=== PATIENT | male | born 1945 | race Caucasian/White ===

== ENCOUNTER 2016-09-21 07:09 | Day surgery (SDC) | payer MEDICARE, OTHER ==
[~2016-09-21 07:09] MED LIST: RINGERS SOLUTION,LACTATED 1,000 ML IV PRN; ceFAZolin SODIUM 1 GM VIAL IV PRN
--- OUTSIDE RECORDS SUMMARY | 2016-09-21 07:13 | XMS REPORT | Continuity of Care Document ---
:1945 Author Organization [facility] ([facility]) Address [address] [place] [address] Phone [phone] Care Team Providers Name Role Phone Mehdi Collins Primary Care Provider [phone] Source Comments This disclosure is being made pursuant to the Care Everywhere program, applicable federal and state laws, and may not contain all informaitonavailable regarding this patient.[facility] ([facility]) Active Allergies and Adverse Reactions No Known Allergies Current Medications Prescription Sig. Disp. Refills Start Date End Date Status lisinopril 40 mg Take 40 mg by mouth Active tablet daily. Indications: HYPERTENSION clonazePAM 1 mg tablet Take 1 mg by mouth 2 01/01/2014 Active times daily as needed. Indications: Anxiety Active Problems Problem Noted Date Bipolar disorder, unspecified 01/01/2014 Overview: Reported by previous [facility] psychiatrist Social History Tobacco Use Types Packs/Day Years Used Date Current Every Day Smoker 2 49 Tobacco Cessation:Ready to Quit: No; Counseling Given: No Comments: Last Filed Vital Signs Vital Sign Reading Time Taken Blood Pressure 128/78 04/22/2014 2:12 PM DIRECTOR SOFTWARE Pulse 75 04/22/2014 2:12 PM DIRECTOR SOFTWARE Temperature - - Respiratory Rate 16 04/22/2014 2:12 PM DIRECTOR SOFTWARE Height 1.755 m (5' 9.09") 02/19/2014 1:42 PM CDT Weight 77.111 kg (170 lb) 04/22/2014 2:12 PM DIRECTOR SOFTWARE Body Mass Index 25.04 04/22/2014 2:12 PM DIRECTOR SOFTWARE Oxygen Saturation 100% 03/03/2014 10:50 AM CDT Plan of Care Health Maintenance Due Date Last Done Comments HCV Screening 1945 Hepatitis B Vaccine (1 of 3 - Primary Series) 1945 Tdap Vaccine 01/09/1956 Lipid Disorder Screening 1963 Td Vaccine 1963 Colonoscopy 1995 Prostate Cancer Screening 1995 Zoster Vaccine 2005 Pneumococcal Vaccine (1 of 2 - PCV13) 2010 Influenza Vaccine: Seasonal (#1) 12/21/2015 Results from Last 3 Months Not on file
[2016-09-21] MEDS ORDERED: BUPIVACAINE HCL 50 ML VIAL IJ ONE ×2 (08:00)
[2016-09-21 10:08] VITALS: BP 142/76
== END 2016-09-21 07:10 | disposition home or self-care (01) ==
LOC: AMB 07:09
PROVIDERS: ATTEND Orthopaedic Surgery
PROC: 0XB Anatomical Regions, Upper Extremities, Excision (ICD-10-PCS; principal; 2016-09-21 08:00)
DX: M67.431 Ganglion, right wrist (principal); I10 Essential (primary) hypertension; K21.9 Gastro-esophageal reflux disease without esophagitis; F41.9 Anxiety disorder, unspecified; F33.9 Major depressive disorder, recurrent, unspecified; F17.200 Nicotine dependence, unspecified, uncomplicated; Z68.22 Body mass index [BMI] 22.0-22.9, adult

== ENCOUNTER 2020-06-21 11:00 | Inpatient (IN) ==
--- NOTE | 2020-06-21 11:46 | ERNOTE ---
Abdominal HPI - Narrative Date of Service: 06/21/20 - General Chief Complaint: Abdominal Pain Time Seen by Provider: 06/21/20 11:33 Source: patient, family Exam Limitations: no limitations - Immun/Allergies/Home Medications Immunizatons: IMMUNIZATION HX Immunizations Up to Date Yes History of Influenza Vaccine More Information Required Hx Pneumococcal Vaccination Yes Allergies/Adverse Reactions: Allergies irbesartan [From Avapro] Allergy (Severe, Verified 06/21/20 11:21) Anaphylaxis valsartan [From Diovan] Allergy (Severe, Verified 06/21/20 11:21) Anaphylaxis aripiprazole [From Abilify] Adverse Reaction (Mild, Verified 06/21/20 11:21) Headache eszopiclone [From Lunesta] Adverse Reaction (Mild, Verified 06/21/20 11:21) HEADACHES lithium Adverse Reaction (Mild, Verified 06/21/20 11:21) INTERACTION WITH LISINOPRIL, DEPRESSES HIM phenelzine sulfate [From Nardil] Adverse Reaction (Mild, Verified 06/21/20 11:21) BRAIN PRESSURE, HEADACHES Home Medications: HOME MEDICATIONS fluticasone propionate 50 mcg/actuation nasal spray,suspension 1 spray SELIN BID #9.9 g 07/12/18 [Last Taken 07/17/18] cholecalciferol (vitamin D3) 50 mcg (2,000 unit) capsule 2,000 unit PO DAILY [Last Taken Unknown] ferrous sulfate 325 mg (65 mg iron) tablet 325 mg PO Q3D tab 06/28/19 [Last Taken Unknown] metoprolol tartrate 50 mg tablet 50 mg PO BID #60 tab 12/17/19 [Last Taken Unkno wn] aspirin 81 mg tablet,delayed release 81 mg PO DAILY 01/08/20 [Last Taken Unknown] Spiro Oil/[place]-3 Fatty Acids [Fish Oil] 1,200 mg PO DAILY 01/10/20 [Last Taken Unknown] lamotrigine 200 mg tablet 200 mg PO DAILY #30 tab 04/02/20 [Last Taken Unknown] lisinopril 20 mg tablet 20 mg PO DAILY #90 tab 04/20/20 [Last Taken Unknown] dextroamphetamine-amphetamine 20 mg tablet 40 mg PO BID #120 tab 04/23/20 [Last Taken Unknown] - History of Present Illness Narrative: Patient comes in for periumbilical abdominal pain that started last night. He states it severe, constant, not changing although he thinks it might of gotten worse since it started last night. He has not taken anything at home for the pain. It does not radiate. He had a bowel movement yesterday, this was normal. He feels slightly nauseated, has not vomited. No change in urine. He does not feel ill otherwise, no fever, no cough. He reports no chest pain and does not feel that the pain is any worse with deep breathing, movement etc. Pain is rated at an 8 out of 10 in severity. Timing: constant Review of Systems - Review of Systems Constitutional: Present: no symptoms reported. Absent: recent illness EYE: Present: no symptoms reported ENT: Present: no symptoms reported Respiratory: Present: no symptoms reported Cardiology: Present: no symptoms reported Gastrointestinal/Abdominal: Present: See HPI Skin: Present: no symptoms reported Medical History (Last Reviewed 06/21/20 @ 12:29 by Sherie Augustine MD) Refused pneumococcal vaccination (Acute) Onset Date: ~05/2018 Refused influenza vaccine (Acute) Onset Date: ~05/2018 Tobacco abuse (Chronic) Anemia (Chronic) CHF (congestive heart failure) (Chronic) Onset Date: ~09/22/17 PVD (peripheral vascular disease) (Chronic) Onset Date: ~09/22/17 Paresthesias (Chronic) Onset Date: ~02/21/13 Major depression (Chronic) Onset Date: Unknown Insomnia (Chronic) Onset Date: ~02/21/13 Hypotestosteronemia (Chronic) Onset Date: ~01/18/15 Hypertension (Chronic) Onset Date: ~04/05/13 GERD (gastroesophageal reflux disease) (Chronic) Onset Date: ~05/29/14 Elevated blood pressure reading (Chronic) Onset Date: Unknown Chronic major depressive disorder, recurrent episode (Chronic) Onset Date: ~04/30/16 CAD (coronary artery disease) (Chronic) Onset Date: ~09/22/17 Bipolar disorder (Chronic) Onset Date: ~09/29/13 Anxiety disorder (Chronic) Onset Date: ~04/05/13 Acute myocardial infarction (Chronic) Onset Date: ~09/22/17 ACS (acute coronary syndrome) (Acute) History of blood transfusion Onset Date: ~07/05/18 Myopia Onset Date: Unknown Renal failure Onset Date: Unknown Bronchitis Onset Date: Unknown Chickenpox Onset Date: Unknown Colon neoplasm Onset Date: ~01/16/07 Eczema Onset Date: Unknown Kidney stone Onset Date: Unknown Measles Onset Date: Unknown Mumps Onset Date: Unknown NSTEMI (non-ST elevated myocardial infarction) Onset Date: Unknown Surgical History: Surgical History (Last Reviewed 06/21/20 @ 12:29 by Sherie Augustine MD) H/O colonoscopy Onset Date: 09/11/17 Krzysztof 01/15/07-tubulovillous adenoma, 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 04/05/07-tubular adenoma x3, hyperplasia polyp. 09/13/07-tubular adenoma x3. 01/09/09-normal. 10/12/15-normal. Repeat 5 yrs. Paula Ryder-09/11/17-negative. H/O heart artery stent Onset Date: 09/12/17 Britni H/O inguinal hernia repair Onset Date: 01/09/09 Cristyan-right w/mesh plug and patch H/O shoulder surgery Onset Date: 04/28/08 [facility] left shoulder History of angiography Onset Date: 10/18/17 Paula Ryder-abd aortogram w/left lower extremity runoff angiography, right angiography w/stents History of colon resection Onset Date: 01/18/07 Krzysztof-sigmoid colon resection for adenocarcinoma w/negative nodes. (left colon resection, small bowel resection) History of esophagogastroduodenoscopy (EGD) Onset Date: 09/11/17 Krzysztof 10/12/15-H pylor negative, chronic irritation gastritis. Paula Ryder-09/11/17-negative. S/P wrist surgery Onset Date: 09/21/16 Lawson-excision right volar radial wrist mass. history of heart catherization Onset Date: 09/08/17 Paula Ryder-100% stenosis LAD, 95% stenosis LCA, 85-90% stenosis RCA. Family History: Family History (Last Reviewed 06/21/20 @ 12:29 by Sherie Augustine MD) Brother Alive and well 1 brother Heart disease 1 brother Father , age 64-heart disease CHF (congestive heart failure) CAD (coronary artery disease) Cancer lung Heart disease Mother Alcoholic Lymphoma Cancer larynx Uncle Cancer lung Sister Alive and well Social History: (Last Reviewed 06/21/20 @ 12:29 by Sherie Augustine MD) Social History: adopted: No mcfp: No Marital status: household members: spouse number of children: 3 caregiver/support person: Yes current occupational status: retired Highest level of school completed/degree received: Master's degree Service: No Tobacco: Smoking Status: Current every day smoker tobacco type: cigarettes Smoking packs per day: 1.5 Alcohol: alcohol intake: current Alcohol type: wine alcohol intake frequency: a few times a week Substance Use: substance use type: does not use Dietary Habits: caffeine: Yes Personal Safety: victim of physical abuse: No victim of emotional abuse: No Physical Exam - Physical Exam General Appearance: Present: wd/wn, alert, no apparent distress Head Exam: Present: normal inspection, no evidence of injury Eye Exam: Normal inspection: bilateral, PERRL: bilateral Neck: Present: normal inspection, nontender, supple Respiratory: Present: no respiratory distress, lungs clear Cardiovascular/Chest: Present: regular rate, rhythm Gastrointestinal/Abdominal: Present: normal bowel sounds, soft, other - Pain is located in the center of the abdomen, just above the umbilicus. There is a well-healed surgical scar from partial colectomy, diverticulitis. There is no specific pain with palpation, no rebound guarding or signs of peritonitis. No HSM. Back Exam: Present: normal inspection, no CVA tenderness Extremity Exam: Present: no edema Skin Exam: Present: normal color, warm/dry Progress - Results and Orders Patient's Lab Results:: I have reviewed the patient's lab results. Results and Orders: Laboratory Tests 06/21/20 06/21/20 06/21/20 12:10 12:10 12:10 WBC 21.4 H Hgb 14.6 Hct 44.2 Plt Count 301 Plasma Sodium 138 Potassium 4.2 Chloride 95 L Carbon Dioxide 30.6 Anion Gap 14.6 H BUN 40 H D Creatinine 2.05 H D Random Glucose 232 H Lactic Acid, Venous 3.9 H* Calcium 10.0 Total Bilirubin 0.5 AST 19 ALT 33 Alkaline Phosphatase 82 Troponin I Less than 0.017 Albumin 4.6 Amylase 47 Lipase 146 Laboratory Tests 06/21/20 14:44 Lactic Acid, Venous 2.9 H* Laboratory Tests 06/21/20 14:30 SARS-CoV-2 (PCR) Not detected - Vital Signs Patient's Vital Signs:: I have reviewed the patient's vital signs. Vital Signs: Vital Signs 06/21/20 11:15 Temperature 36.9 C Pulse Rate 108 H Respiratory Rate 18 Blood Pressure 156/85 H O2 Sat by Pulse Oximetry 97 - EKG EKG #1 EKG: NSR EKG read: Interp. by me EKG Comments: EKG shows normal sinus rhythm, ventricular rate of 98, there is occasional PVCs. There is an incomplete right bundle branch block which is new from previous EKG. There is an old septal TN present. The previous EKG from December 2019 shows that septal TN in occurrence. - CT/Ultrasound CT/Ultrasound Narrative: IMPRESSION: 1. COMPLETE HIGH-GRADE SMALL BOWEL OBSTRUCTION WITH A TRANSITION POINT SEEN IN THE LEFT LOWER QUADRANT. 2. CHOLELITHIASIS WITHOUT EVIDENCE FOR CHOLECYSTITIS. 3. ADDITIONAL CHRONIC FINDINGS AND DETAILS ABOVE. - Progress/Reassessment Chief Complaint: Abdominal Pain Progress:: Unchanged Progress Note-Subjective: 06/21/20 14:08 Patient's pain was eventually controlled using morphine and then Dilaudid, he also received Zofran. He is receiving IV fluids on bolus. I did discuss results with patient and his family including elevated white blood cell count, elevated lactic acid and the abnormal CT scan indicating a high-grade SBO. I have already spoken with Krzysztof Thompson who is general surgery organic preparation analyst. He is looking over the patient's CT scan and additional information. He plans to come and evaluate the patient to determine whether or not he is a candidate for admission here versus transfer. Patient is resting comfortably, he is fatigued from his medication. He has not vomited. Holding off on NG placement due to patient's level of fatigue, and the fact that he has not yet vomited. 06/21/20 15:15 Dr. Blankenship at bedside and evaluating pt. He agrees with diagnosis and NG tube placement. He places with nurse himself. Reviews the CT scan, labs etc. Is planning to admit pt here, monitor, NPO and continue to treat for SBO. 06/21/20 15:55 Large amount out NG. 1600 and then 1350cc out. Pts blood pressure decreased to 117/64. He still reports he is comfortable. Covid returns negative. Case discussed with Dr. Cardona. He accepts pt for admission, pt is stable. He is transferred to floor in stable condition. Second L of ivf is set at 125cc/hr. Departure Clinical Impression: SBO (small bowel obstruction) - Departure Disposition: Still a patient Condition: Good Referrals: Bijal Otero DO [Primary Care Provider] -
[2020-06-21] MEDS ORDERED: ONDANSETRON HCL/PF 2 MG/ML VIAL IV ONE (11:55)
[2020-06-21] MEDS ORDERED: MORPHINE SULFATE 4 MG/ML SYRG IV ONE (11:58)
[2020-06-21 12:16] LABS: Hematocrit 44.2 % (42.0-52.0); Hemoglobin 14.6 gm/dL (13.5-18.0); Mean Cell Volume 91.1 fl (78-100); Mean Corpuscular Hemoglobin 30.1 pg (27-31); Mean Platelet Volume 8.9 fl (8-11.3); Platelet Count 301 K/mm3 (150-450); Red Blood Count 4.85 M/mm3 (4.7-6.0); Red Cell Distribution Width 12.5 % (11.5-14.0); White Blood Count 21.4 K/mm3 (4.0-10.5)
[2020-06-21 12:23] LABS: Total Cells Counted 100
[2020-06-21 12:37] LABS: ALT 33 U/L (19-67); AST 19 U/L (0-48); Albumin * 4.6 gm/dl (3.4-5.0); Alkaline Phosphatase * 82 U/L (50-170); Amylase * 47 U/L (25-115); Anion Gap 14.6 mmol/L (6.8-13.8); BUN/Creatinine Ratio 19.5 (9.0-21.6); Band 2 % (0-2.0); Bilirubin, Total 0.5 mg/dL (0.0-1.1); Blood Urea Nitrogen 40 mg/dL (6-23); Ca. Corrected For Albumin 9.2 mg/dL (8.4-10.2); Carbon Dioxide 30.6 mmol/L (24-32.6); Chloride 95 mmol/L (97-106); Glucose * 232 mg/dL (70-110); Lipase 146 U/L (73-393); Lymphocyte 8 % (20-51); Monocyte 4 % (0-9); Neutrophil 86 % (42-75); Neutrophil # 18.4 K/mm3 (1.3-6.0); Platelet Estimate Normal (NORMAL); Potassium 4.2 mmol/L (3.4-4.6); RBC Morphology Normal (NORMAL); Sodium 136 mmol/L (132-142); Total Protein 8.2 gm/dL (6.2-8.2); Troponin I Less than 0.017 ng/mL (0.00-0.10)
[2020-06-21] MEDS ORDERED: HYDROmorphone HCL 1 MG/ML DISP.SYRIN IV ONE (12:48)
[2020-06-21] MEDS ORDERED: NORMAL SALINE 1,000 ML IV ONE ×2 (12:49→16:04)
[2020-06-21] MEDS: NORMAL SALINE 1,000 ML IV PRN (16:01)
--- NOTE | 2020-06-21 16:07 | CONS ---
[facility] - General Date of Service: 06/21/20 Source: patient, family, RN/MD, RN notes reviewed, old records Exam Limitations: no limitations - History of Present Illness Timing/Duration: other - He started having abdominal pain last night Modifying Factors - (Worsens): Reports: movement Modifying Factors - (Improves): Reports: immobilization Associated Symptoms: other - He has not vomited. He had a bowel movement yesterday Allergies/Adverse Reactions: Allergies irbesartan [From Avapro] Allergy (Severe, Verified 06/21/20 11:21) Anaphylaxis valsartan [From Diovan] Allergy (Severe, Verified 06/21/20 11:21) Anaphylaxis aripiprazole [From Abilify] Adverse Reaction (Mild, Verified 06/21/20 11:21) Headache eszopiclone [From Lunesta] Adverse Reaction (Mild, Verified 06/21/20 11:21) HEADACHES lithium Adverse Reaction (Mild, Verified 06/21/20 11:21) INTERACTION WITH LISINOPRIL, DEPRESSES HIM phenelzine sulfate [From Nardil] Adverse Reaction (Mild, Verified 06/21/20 11:21) BRAIN PRESSURE, HEADACHES Home Medications: Home Medications Medication Instructions Recorded Last Taken fluticasone propionate 50 1 spray SELIN BID #9.9 g 07/12/18 07/17/18 mcg/actuation nasal spray,suspension cholecalciferol (vitamin D3) 50 2,000 unit PO DAILY 01/25/19 Unknown mcg (2,000 unit) capsule ferrous sulfate 325 mg (65 mg 325 mg PO Q3D tab 06/28/19 Unknown iron) tablet metoprolol tartrate 50 mg tablet 50 mg PO BID #60 tab 12/17/19 Unknown aspirin 81 mg tablet,delayed 81 mg PO DAILY 01/08/20 Unknown release [place] Oil/[place]-3 Fatty Acids 1,200 mg PO DAILY 01/10/20 Unknown [Fish Oil] lamotrigine 200 mg tablet 200 mg PO DAILY #30 tab 04/02/20 Unknown lisinopril 20 mg tablet 20 mg PO DAILY #90 tab 04/20/20 Unknown dextroamphetamine-amphetamine 20 40 mg PO BID #120 tab 04/23/20 Unknown mg tablet Procedures Administration of diphtheria toxoid (08/05/10) Administration of tetanus toxoid (08/05/10) BONE GRAFT TO HUMERUS (04/28/08) Closure of skin and subcutaneous tissue of other sites (09/22/06) Colonoscopy (01/09/09) EXCISE HUMERUS FOR GRAFT (04/28/08) Endoscopic polypectomy of large intestine (09/13/07) Excision of Right Lower Arm, Open Approach (09/21/16) Excision of Stomach, Via Natural or Artificial Opening Endoscopic, Diagnostic (10/12/15) Flexible sigmoidoscopy (01/18/07) Inspection of Lower Intestinal Tract, Via Natural or Artificial Opening Endoscopic (10/12/15) Left hemicolectomy (01/18/07) Lysis of intraluminal adhesions with incision into bladder (01/18/07) OPEN RED-INT FIX HUMERUS (04/28/08) Other and open repair of indirect inguinal hernia with graft or prosthesis (01/09/09) Other partial resection of small intestine (01/18/07) Repair of recurrent dislocation of shoulder (04/28/08) [Endoscopic] polypectomy of rectum (09/13/07) Review of Systems - Review of Systems Generalized/Overall Review: Present: Weakness. Absent: Chills, Fever EENTM: Present: No Symptoms Reported Respiratory: Absent: Cough, Shortness of Breath Cardiac: Absent: Chest Pain, Palpitations Abdominal: Present: Other - Abdominal pain and distention Genitourinary: Present: No Symptoms Reported Musculoskeletal: Present: No Symptoms Reported Neurological: Present: Other - He has not found a medication that works well for his bipolar disorder. Currently using amphetamine salts. His states he may need something for anxiety while here Skin: Present: No Symptoms Reported Physical Examination - Exam Vital Signs: Vital Signs - Last Taken Temp 36.9 C 06/21/20 11:15 Pulse 93 06/21/20 15:15 Resp 15 06/21/20 15:30 BP 148/70 06/21/20 15:30 Pulse Ox 97 06/21/20 15:30 O2 Oxygen Delivery Method Room Air Constitutional: Present: Oriented x3, Cooperative, Well developed, Well nourished, Mild distress, Somnolent ENT Exam: Present: normal ENT inspection Eye Exam: bilateral eye: normal inspection Neck: Present: full range of motion, normal inspection Breasts: Present: Exam deferred Respiratory: Present: lungs clear, no respiratory distress Cardiovascular/Chest: Present: other - Heart sounds are very distant but the rhythm is regular Abdomen: Present: other - Distended and tympanic. Hypoactive bowel sounds. No percussion tenderness. No guarding. No discrete direct point tenderness and no rebound elicited /Rectal: Present: Exam deferred Extremity: Present: normal range of motion, no pedal edema, no calf tenderness Skin Exam: Present: normal color, warm/dry Neurologic: Present: car blocker II-XII nml as tested, no motor/sensory deficits Appearance: Present: no memory impairment, other - Somewhat somnolent from the pain medication Eye contact: Present: cooperative, normal speech, other - Falls asleep when not stimulated Thoughts: Present: normal thought pattern, no apparent hallucination - Results and Findings: Lab/Microbiology results last 24 hrs: Abnormal/Pending Laboratory Last 24 HRS 06/21/20 06/21/20 06/21/20 14:44 12:10 12:10 WBC Neutrophils % (Manual) Lymphocytes % (Manual) Neutrophils # (Manual) Chloride 95 L Anion Gap 14.6 H BUN 40 H D Creatinine 2.05 H D Est GFR (Non-Af Amer) 34 L D Random Glucose 232 H Lactic Acid, Venous 2.9 H* 3.9 H* 06/21/20 12:10 WBC 21.4 H Neutrophils % (Manual) 86 H Lymphocytes % (Manual) 8 L Neutrophils # (Manual) 18.4 H Chloride Anion Gap BUN Creatinine Est GFR (Non-Af Amer) Random Glucose Lactic Acid, Venous - Assessments/Findings (1) SBO (small bowel obstruction) Diagnosis(s): There is at least a high-grade partial small bowel obstruction as there is air and stool in the colon and he moved his bowels yesterday. Most likely etiology is adhesions from his previous extensive surgery. He presented with a colon obstruction in 2006. He was found to have an adenocarcinoma which was adherent to the bladder and small intestine requiring a small bowel resection and a cystotomy for resection. The cancer was node- negative and he has had a subsequent normal colonoscopy here in 2016 and in 2018 at [facility]. I placed a nasogastric tube in the emergency room with return of blood-tinged coffee-ground material. He has multiple risk factors for any surgery given his extensive coronary artery disease and decreased renal function. Would recommend an initial trial of nonoperative management. Recommend IV Protonix Problem: Acute (2) Bipolar disorder Diagnosis(s): He has never found a successful combination of medication for this. He is currently on amphetamine salts. Problem: Chronic Qualifiers: (3) CAD (coronary artery disease) Diagnosis(s): He has multiple drug-eluting stents placed to [facility]. He was seen by Dr. Puente at [facility] in 2019, however most of his records appear to be from [facility]. He is on aspirin and Plavix. He currently denies anginal type chest discomfort Problem: Chronic Qualifiers: Coronary Disease-Associated Artery/Lesion type: due to calcified coronary lesion Qualified Code(s): I25.10 - Atherosclerotic heart disease of [place] coronary artery without angina pectoris; I25.84 - Coronary atherosclerosis due to calcified coronary lesion (4) GERD (gastroesophageal reflux disease) Diagnosis(s): The nasogastric tube returned coffee-ground and blood-tinged material compatible with his previous erosive gastritis. I believe his last upper GI endoscopy was in 2018 at [facility] His states that he has stopped his proton pump inhibitor. Would recommend IV Protonix Problem: Acute (5) Hypertension Problem: Chronic Qualifiers: (6) Kidney disease, chronic, stage III (moderate, EGFR 30-59 ml/min) Problem: Chronic (7) PVD (peripheral vascular disease) Diagnosis(s): He has had multiple percutaneous revascularizations at the vascular [place] [facility] the [facility] in [place] Problem: Chronic
[2020-06-21 18:00] LABS: Urine Appearance Clear (CLEAR); Urine Bilirubin Negative (NEGATIVE); Urine Color Yellow
[2020-06-21 18:01] LABS: Urine Bacteria None Seen; Urine Blood Negative /ul (NEGATIVE); Urine Ketone Negative (NEGATIVE); Urine Nitrite Negative (NEGATIVE); Urine Protein Negative (NEGATIVE); Urine RBC None Seen /hpf (0-5); Urine Urobilinogen Normal (NORMAL); Urine WBC 0-5 /hpf (0-5)
[2020-06-21] MEDS ORDERED: clonazePAM 1 MG TABLET PO ONE (20:07)
[2020-06-21] MEDS: LORazepam 2 MG/ML DISP.SYRIN IV PRN (21:25)
[2020-06-21] MEDS: NICOTINE 21 MG PATC TD SCH (23:12)
[2020-06-21] MEDS: METOPROLOL TARTRATE 1 MG/ML AMPUL IV SCH (23:37)
--- NOTE | 2020-06-21 23:38 | HP ---
Chief Complaint - Chief Complaint Date of Service: 06/21/20 Time of Service: 17:30 Chief Complaint: Abdominal Pain History of Present Illness: Josesito Azar is a 75 yo male who presented to the [facility] ER with severe abdominal pain that began today. He reports having a fairly normal day yesterday. He recalls passing gas and having normal bowel movements yesterday. He does not recall eating anything out of the ordinary. He abdominal pain began today and has been severe. He presented to the [facility] ER and abdominal CT was completed showing a high grade small bowel obstruction with obvious transition point. He had a previous colon resection in 2006 due to adenocarcinoma of the colon. He does not recall any prior small bowel obstructions or similar symptoms. He denies any other symptoms and prior to yesterday reports he had been feeling well. He specifically denies chest pain, shortness of breath, fever, or chills. Medical History (Last Reviewed 06/21/20 @ 17:11 by Leatha Nieslen RN) Refused pneumococcal vaccination (Acute) Onset Date: ~05/2018 Refused influenza vaccine (Acute) Onset Date: ~05/2018 Tobacco abuse (Chronic) Anemia (Chronic) CHF (congestive heart failure) (Chronic) Onset Date: ~09/22/17 PVD (peripheral vascular disease) (Chronic) Onset Date: ~09/22/17 Paresthesias (Chronic) Onset Date: ~02/21/13 Major depression (Chronic) Onset Date: Unknown Insomnia (Chronic) Onset Date: ~02/21/13 Hypotestosteronemia (Chronic) Onset Date: ~01/18/15 Hypertension (Chronic) Onset Date: ~04/05/13 GERD (gastroesophageal reflux disease) (Acute) Onset Date: ~05/29/14 Elevated blood pressure reading (Chronic) Onset Date: Unknown Chronic major depressive disorder, recurrent episode (Chronic) Onset Date: ~04/30/16 CAD (coronary artery disease) (Chronic) Onset Date: ~09/22/17 Bipolar disorder (Chronic) Onset Date: ~09/29/13 Anxiety disorder (Chronic) Onset Date: ~04/05/13 Acute myocardial infarction (Chronic) Onset Date: ~09/22/17 ACS (acute coronary syndrome) (Acute) History of blood transfusion Onset Date: ~07/05/18 Myopia Onset Date: Unknown Renal failure Onset Date: Unknown Bronchitis Onset Date: Unknown Chickenpox Onset Date: Unknown Colon neoplasm Onset Date: ~01/16/07 Eczema Onset Date: Unknown Kidney stone Onset Date: Unknown Measles Onset Date: Unknown Mumps Onset Date: Unknown NSTEMI (non-ST elevated myocardial infarction) Onset Date: Unknown Surgical History: Surgical History (Last Reviewed 06/21/20 @ 17:11 by Leatha Nielsen RN) H/O colonoscopy Onset Date: 09/11/17 Krzysztof 01/15/07-tubulovillous adenoma, 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 04/05/07-tubular adenoma x3, hyperplasia polyp. 09/13/07-tubular adenoma x3. 01/09/09-normal. 10/12/15-normal. Repeat 5 yrs. Paula Ryder-09/11/17-negative. H/O heart artery stent Onset Date: 09/12/17 Britni H/O inguinal hernia repair Onset Date: 01/09/09 Cristyan-right w/mesh plug and patch H/O shoulder surgery Onset Date: 04/28/08 [facility] left shoulder History of angiography Onset Date: 10/18/17 Paula Ryder-abd aortogram w/left lower extremity runoff angiography, right angiography w/stents History of colon resection Onset Date: 01/18/07 Krzysztof-sigmoid colon resection for adenocarcinoma w/negative nodes. (left colon resection, small bowel resection) History of esophagogastroduodenoscopy (EGD) Onset Date: 09/11/17 Krzysztof 10/12/15-H pylor negative, chronic irritation gastritis. Paula Ryder-09/11/17-negative. S/P wrist surgery Onset Date: 09/21/16 [place]-excision right volar radial wrist mass. history of heart catherization Onset Date: 09/08/17 Paula Ryder-100% stenosis LAD, 95% stenosis LCA, 85-90% stenosis RCA. Family History: Family History (Last Reviewed 06/21/20 @ 17:12 by Leatha Nielsen RN) Brother Heart disease 1 brother Alive and well 1 brother Father , age 64-heart disease Heart disease Cancer lung CAD (coronary artery disease) CHF (congestive heart failure) Mother Cancer larynx Lymphoma Alcoholic Uncle Cancer lung Sister Alive and well Social History: (Last Reviewed 06/21/20 @ 14:24 by Mal Brunson RN) Social History: adopted: No custodial: No Marital status: household members: spouse number of children: 3 caregiver/support person: Yes current occupational status: retired Highest level of school completed/degree received: Master's degree Service: No Tobacco: Smoking Status: Current every day smoker tobacco type: cigarettes Smoking packs per day: 1.5 Alcohol: alcohol intake: current Alcohol type: wine alcohol intake frequency: a few times a week Substance Use: substance use type: does not use Dietary Habits: caffeine: Yes Personal Safety: victim of physical abuse: No victim of emotional abuse: No Review Of Systems (GEN) - Review of Systems Generalized/Overall Review: Absent: Weakness, Chills, Fever EENTM: Present: No Symptoms Reported Respiratory: Absent: Cough, Shortness of Breath Cardiac: Absent: Chest Pain, Edema, Palpitations Abdominal: Present: Nausea, Abdominal Pain. Absent: Constipation Genitourinary: Absent: Burning, Frequency Musculoskeletal: Present: No Symptoms Reported Neurological: Present: Anxiety Skin: Present: No Symptoms Reported Endocrine: Present: No Symptoms Reported Immunizations: IMMUNIZATION HX Immunizations Up to Date Yes History of Influenza Vaccine More Information Required Hx Pneumococcal Vaccination Yes Allergies/Adverse Reactions: Allergies Allergy/AdvReac Type Severity Reaction Status Date / Time irbesartan [From Avapro] Allergy Severe Anaphylaxis Verified 06/21/20 11:21 valsartan [From Diovan] Allergy Severe Anaphylaxis Verified 06/21/20 11:21 aripiprazole [From Abilify] AdvReac Mild Headache Verified 06/21/20 11:21 eszopiclone [From Lunesta] AdvReac Mild HEADACHES Verified 06/21/20 11:21 lithium AdvReac Mild INTERACTION Verified 06/21/20 11:21 WITH LISINOPRIL, DEPRESSES HIM phenelzine sulfate AdvReac Mild BRAIN Verified 06/21/20 11:21 [From Nardil] PRESSURE, HEADACHES Home Medications: HOME MEDICATIONS fluticasone propionate 50 mcg/actuation nasal spray,suspension 1 spray SELIN BID #9.9 g 07/12/18 [Last Taken 07/17/18] cholecalciferol (vitamin D3) 50 mcg (2,000 unit) capsule 2,000 unit PO DAILY 01/25/19 [Last Taken Unknown] metoprolol tartrate 50 mg tablet 50 mg PO BID #60 tab 12/17/19 [Last Taken Unknown] [place] Oil/[place]-3 Fatty Acids [Fish Oil] 1,200 mg PO DAILY 01/10/20 [Last Taken Unknown] lamotrigine 200 mg tablet 200 mg PO DAILY #30 tab 04/02/20 [Last Taken Unknown] dextroamphetamine-amphetamine 20 mg tablet 40 mg PO BID #120 tab 04/23/20 [Last Taken Unknown] Aspirin [Aspirin EC] 81 mg PO DAILY 06/21/20 [Last Taken Unknown] Exam - Exam Vital Signs: Vital Signs - Last Taken Temp 36.8 C 06/21/20 22:45 Pulse 123 H 06/21/20 22:45 Resp 20 06/21/20 22:45 BP 140/76 06/21/20 22:45 Pulse Ox 94 06/21/20 22:45 Constitutional: Present: Alert, Oriented x3 ENT Exam: Present: hearing grossly normal Eye Exam: bilateral eye: normal inspection Respiratory: Present: lungs clear, normal breath sounds Cardiovascular/Chest: Present: no murmur, tachycardia Peripheral Pulses: radial (R): 2+, radial (L): 2+ Abdomen: Present: soft, tender - diffuse, hypoactive Extremity: Present: normal inspection Skin Exam: Present: normal color, warm/dry, no cyanosis Appearance: Present: appropriate appearance, appropriate insight Eye contact: Present: good eye contact, normal speech Thoughts: Present: normal thought pattern, no apparent hallucination Diagnostic Studies: Abnormal Lab Results 06/21/20 06/21/20 06/21/20 Range/Units 12:10 12:10 12:10 WBC 21.4 H (4.0-10.5) K/mm3 Neutrophils % (Manual) 86 H (42-75) % Lymphocytes % (Manual) 8 L (20-51) % Neutrophils # (Manual) 18.4 H (1.3-6.0) K/mm3 Chloride 95 L (97-106) mmol/L Anion Gap 14.6 H (6.8-13.8) mmol/L BUN 40 H D (6-23) mg/dL Creatinine 2.05 H D (0.4-1.4) mg/dL Est GFR (Non-Af Amer) 34 L D (60-130) mL/min Random Glucose 232 H (70-110) mg/dL Lactic Acid, Venous 3.9 H* (0.4-2.0) mmol/L 06/21/20 Range/Units 14:44 WBC (4.0-10.5) K/mm3 Neutrophils % (Manual) (42-75) % Lymphocytes % (Manual) (20-51) % Neutrophils # (Manual) (1.3-6.0) K/mm3 Chloride (97-106) mmol/L Anion Gap (6.8-13.8) mmol/L BUN (6-23) mg/dL Creatinine (0.4-1.4) mg/dL Est GFR (Non-Af Amer) (60-130) mL/min Random Glucose (70-110) mg/dL Lactic Acid, Venous 2.9 H* (0.4-2.0) mmol/L Laboratory Results WBC 21.4 K/mm3 (4.0-10.5) H 06/21/20 12:10 RBC 4.85 M/mm3 (4.7-6.0) 06/21/20 12:10 Hgb 14.6 gm/dL (13.5-18.0) 06/21/20 12:10 Hct 44.2 % (42.0-52.0) 06/21/20 12:10 MCV 91.1 fl (78-100) 06/21/20 12:10 MCH 30.1 pg (27-31) 06/21/20 12:10 MCHC 33.0 g/dl (32-36) 06/21/20 12:10 RDW 12.5 % (11.5-14.0) 06/21/20 12:10 Plt Count 301 K/mm3 (150-450) 06/21/20 12:10 MPV 8.9 fl (8-11.3) 06/21/20 12:10 Neutrophils % (Manual) 86 % (42-75) H 06/21/20 12:10 Band Neuts % (Manual) 2 % (0-2.0) 06/21/20 12:10 Lymphocytes % (Manual) 8 % (20-51) L 06/21/20 12:10 Monocytes % (Manual) 4 % (0-9) 06/21/20 12:10 Neutrophils # (Manual) 18.4 K/mm3 (1.3-6.0) H 06/21/20 12:10 Lymphocytes # (Manual) 1.7 k/mm3 (1.5-3.5) 06/21/20 12:10 Monocytes # (Manual) 0.9 k/mm3 (0.0-1.0) 06/21/20 12:10 Platelet Estimate Normal (NORMAL) 06/21/20 12:10 RBC Morphology Normal (NORMAL) 06/21/20 12:10 Sodium 136 mmol/L (132-142) 06/21/20 12:10 Plasma Sodium 138 mmol/L (130-142) 06/21/20 12:10 Potassium 4.2 mmol/L (3.4-4.6) 06/21/20 12:10 Chloride 95 mmol/L (97-106) L 06/21/20 12:10 Carbon Dioxide 30.6 mmol/L (24-32.6) 06/21/20 12:10 Anion Gap 14.6 mmol/L (6.8-13.8) H 06/21/20 12:10 BUN 40 mg/dL (6-23) H D 06/21/20 12:10 Creatinine 2.05 mg/dL (0.4-1.4) H D 06/21/20 12:10 Est GFR (Non-Af Amer) 34 mL/min (60-130) L D 06/21/20 12:10 BUN/Creatinine Ratio 19.5 (9.0-21.6) 06/21/20 12:10 Random Glucose 232 mg/dL (70-110) H 06/21/20 12:10 Lactic Acid, Venous 2.9 mmol/L (0.4-2.0) H* 06/21/20 14:44 Calcium 10.0 mg/dL (7.9-10.9) 06/21/20 12:10 Calcium Adj for Albumin 9.2 mg/dL (8.4-10.2) 06/21/20 12:10 Total Bilirubin 0.5 mg/dL (0.0-1.1) 06/21/20 12:10 AST 19 U/L (0-48) 06/21/20 12:10 ALT 33 U/L (19-67) 06/21/20 12:10 Alkaline Phosphatase 82 U/L (50-170) 06/21/20 12:10 Troponin I Less than 0.017 ng/mL (0.00-0.10) 06/21/20 12:10 Total Protein 8.2 gm/dL (6.2-8.2) 06/21/20 12:10 Albumin 4.6 gm/dl (3.4-5.0) 06/21/20 12:10 Amylase 47 U/L (25-115) 06/21/20 12:10 Lipase 146 U/L (73-393) 06/21/20 12:10 Urine Color Yellow 06/21/20 17:41 Urine Appearance Clear (CLEAR) 06/21/20 17:41 Urine pH 6.0 pH (5.0-7.0) 06/21/20 17:41 Ur Specific [place] 1.010 SP.GR. (1.005-1.030) 06/21/20 17:41 Urine Protein Negative mg/dL (NEGATIVE) 06/21/20 17:41 Urine Glucose (UA) Negative mg/dL (NEGATIVE) 06/21/20 17:41 Urine Ketones Negative mg/dL (NEGATIVE) 06/21/20 17:41 Urine Blood Negative /ul (NEGATIVE) 06/21/20 17:41 Urine Nitrate Negative (NEGATIVE) 06/21/20 17:41 Urine Bilirubin Negative mg/dl (NEGATIVE) 06/21/20 17:41 Urine Urobilinogen Normal EU/dl (NORMAL) 06/21/20 17:41 Ur Leukocyte Esterase Negative /ul (NEGATIVE) 06/21/20 17:41 Urine RBC None seen /hpf (0-5) 06/21/20 17:41 Urine WBC 0-5 /hpf (0-5) 06/21/20 17:41 Ur Epithelial Cells 0-5 /hpf (0-5) 06/21/20 17:41 Urine Bacteria None seen (NONE) 06/21/20 17:41 Urine Culture Comments No culture indicated 06/21/20 17:41 SARS-CoV-2 (PCR) Not detected (NotDetected) 06/21/20 14:30 Assessment/Plan - Narrative Narrative: Josesito is a 75 yo male to be admitted for small bowel obstruction. This is likely related to scar tissue from his previous colon resection. General surgery will be consulted. He will be NPO and will have an NG tube and will attempt treating conservatively. Medically he appears to be at his baseline and does not have any other clinical concerns beyond the small bowel obstruction. - Assessment/Plan (1) SBO (small bowel obstruction) Problem: Acute (2) History of colon resection Problem: Chronic (3) Hypertension Problem: Chronic Qualifiers: Hypertension type: essential hypertension (4) CAD (coronary artery disease) Problem: Chronic Qualifiers: Coronary Disease-Associated Artery/Lesion type: due to calcified coronary lesion Qualified Code(s): I25.10 - Atherosclerotic heart disease of [place] coronary artery without angina pectoris; I25.84 - Coronary atherosclerosis due to calcified coronary lesion
[2020-06-22] MEDS: LORazepam 2 MG/ML DISP.SYRIN IV PRN ×2 (02:17→23:10)
[2020-06-22] MEDS: NORMAL SALINE 1,000 ML IV PRN ×3 (02:53→22:51)
[2020-06-22] MEDS ORDERED: HYDROmorphone HCL 2 MG/ML VIAL IV PRN (05:12)
[2020-06-22] MEDS ORDERED: METOPROLOL TARTRATE 1 MG/ML AMPUL IV PRN ×2 (08:14→14:02)
--- NOTE | 2020-06-22 08:56 | PN ---
Subjective - Date and Time Seen Date: 06/22/20 Time: 08:43 Subjective Narrative: He was admitted last night with a small bowel obstruction and a nasogastric tube was placed. He had 3 L out initially and another 775 mL since then. He became agitated and pulled out his IV and nasogastric tube--- this was out for several hours. I replaced the tube that 10 PM last night. Overnight he was again agitated and complained of pain. He was treated with Ativan and Dilaudid. He was hypertensive and received metoprolol. Objective Objective Narrative: On entering the room he is obtunded. He does not respond to exam or stimulatio n. No review of systems can be obtained from the patient - Vitals Vitals: Last Vital Signs Temp 36.5 C 06/22/20 08:34 Pulse 89 06/22/20 08:34 Resp 16 06/22/20 08:34 BP 146/71 06/22/20 08:34 Pulse Ox 95 06/22/20 08:34 - Abnormal Lab Findings Abnormal Lab Findings: Abnormal Lab Results 06/21/20 06/21/20 06/21/20 Range/Units 12:10 12:10 12:10 WBC 21.4 H (4.0-10.5) K/mm3 Neutrophils % (Manual) 86 H (42-75) % Lymphocytes % (Manual) 8 L (20-51) % Neutrophils # (Manual) 18.4 H (1.3-6.0) K/mm3 Chloride 95 L (97-106) mmol/L Anion Gap 14.6 H (6.8-13.8) mmol/L BUN 40 H D (6-23) mg/dL Creatinine 2.05 H D (0.4-1.4) mg/dL Est GFR (Non-Af Amer) 34 L D (60-130) mL/min Random Glucose 232 H (70-110) mg/dL Lactic Acid, Venous 3.9 H* (0.4-2.0) mmol/L 06/21/20 Range/Units 14:44 WBC (4.0-10.5) K/mm3 Neutrophils % (Manual) (42-75) % Lymphocytes % (Manual) (20-51) % Neutrophils # (Manual) (1.3-6.0) K/mm3 Chloride (97-106) mmol/L Anion Gap (6.8-13.8) mmol/L BUN (6-23) mg/dL Creatinine (0.4-1.4) mg/dL Est GFR (Non-Af Amer) (60-130) mL/min Random Glucose (70-110) mg/dL Lactic Acid, Venous 2.9 H* (0.4-2.0) mmol/L - Exam Constitutional: Present: Obtunded, Thin and frail ENT Exam: Present: normal ENT inspection, other - NG tube in good position right nostril Neck: Present: normal inspection Respiratory: Present: no accessory muscle use, decreased breath sounds. Absent: rhonchi, wheezing Cardiovascular/Chest: Present: regular rate, rhythm, no edema Abdomen: Present: other - Scaphoid, soft, no patient reaction with palpation. No rebound /Rectal: Present: Exam deferred Skin Exam: Present: normal color Neurologic: Present: other - Not assessed Appearance: Present: other - Obtunded but no apparent distress Eye contact: Present: other - None Thoughts: Present: other - Cannot assess Assessment/Plan Plan Narrative: Given his multiple medical risk factors for operation, nonoperative management with NG suction would be preferable. - Problems/Diagnosis (1) SBO (small bowel obstruction) Problem: Acute Narrative: He has had almost 4 L of nasogastric return. No evidence of bowel function. He is on Protonix given his history of gastritis and coffee-ground appearance of the NG aspirate. We will need to carefully monitor OLIVIA's If he would require operation may consider transfer to a higher level institution. Will discuss with the later today Could perform a Gastrografin challenge through the NG tube later today, however the patient will need to be alert enough to prevent vomiting and aspiration (2) Bipolar disorder Problem: Chronic Qualifiers: Narrative: He is currently very heavily sedated. He has poor insight overall to his health issues. (3) CAD (coronary artery disease) Problem: Chronic Qualifiers: Coronary Disease-Associated Artery/Lesion type: due to calcified coronary lesion Qualified Code(s): I25.10 - Atherosclerotic heart disease of [place] coronary artery without angina pectoris; I25.84 - Coronary atherosclerosis due to calcified coronary lesion (4) GERD (gastroesophageal reflux disease) Problem: Acute Narrative: IV Protonix (5) Hypertension Problem: Chronic Qualifiers: Hypertension type: essential hypertension Narrative: We will monitor intake and output. Will defer medical management (6) Kidney disease, chronic, stage III (moderate, EGFR 30-59 ml/min) Problem: Chronic Narrative: His intake and output will need to be monitored carefully. CMP ordered for today (7) PVD (peripheral vascular disease) Problem: Chronic
[2020-06-22 09:00] LABS: Hematocrit 37.7 % (42.0-52.0); Hemoglobin 12.5 gm/dL (13.5-18.0); Mean Cell Volume 91.1 fl (78-100); Mean Corpuscular Hemoglobin 30.2 pg (27-31); Mean Corpuscular Hgb Conc 33.2 g/dl (32-36); Mean Platelet Volume 8.9 fl (8-11.3); Platelet Count 217 K/mm3 (150-450); Red Blood Count 4.14 M/mm3 (4.7-6.0); Red Cell Distribution Width 12.5 % (11.5-14.0); White Blood Count 19.4 K/mm3 (4.0-10.5)
[2020-06-22 09:04] LABS: Total Cells Counted 100
[2020-06-22 09:12] LABS: Albumin * 3.6 gm/dl (3.4-5.0); Anion Gap 9.3 mmol/L (6.8-13.8); BUN/Creatinine Ratio 24.4 (9.0-21.6); Bilirubin, Total 0.5 mg/dL (0.0-1.1); Ca. Corrected For Albumin 8.3 mg/dL (8.4-10.2); Calcium * 8.3 mg/dL (7.9-10.9); Carbon Dioxide 31.2 mmol/L (24-32.6); Potassium 4.5 mmol/L (3.4-4.6); Total Protein 6.6 gm/dL (6.2-8.2)
[2020-06-22 09:32] LABS: Band 1 % (0-2.0); Lymphocyte 3 % (20-51); Monocyte 4 % (0-9); Neutrophil 92 % (42-75); Neutrophil # 17.8 K/mm3 (1.3-6.0); Platelet Estimate Normal (NORMAL)
[2020-06-22 09:33] LABS: RBC Morphology Normal (NORMAL)
[2020-06-22] MEDS: METOPROLOL TARTRATE 1 MG/ML AMPUL IV SCH ×2 (14:21→19:14)
[2020-06-22] MEDS ORDERED: DIATRIZOATE MEGLUMINE, SODIUM 30 ML BTL PO ONE (14:35)
[2020-06-22] MEDS ORDERED: HYDROmorphone HCL 1 MG/ML DISP.SYRIN IV PRN (16:18)
--- NOTE | 2020-06-22 16:25 | PN ---
Dictated Progress Note - Date and Time Seen: Date: 06/22/20 Time: 16:21 - Progress Note Narrative: Vital Signs - Last Taken Temp 36.3 C 06/22/20 14:20 Pulse 120 H 06/22/20 15:28 Resp 16 06/22/20 14:20 BP 112/77 06/22/20 15:28 Pulse Ox 96 06/22/20 11:48 Abnormal/Pending Laboratory Last 24 HRS 06/22/20 06/22/20 08:53 08:53 WBC 19.4 H RBC 4.14 L Hgb 12.5 L Hct 37.7 L Neutrophils % (Manual) 92 H Lymphocytes % (Manual) 3 L Neutrophils # (Manual) 17.8 H Lymphocytes # (Manual) 0.6 L BUN 50 H Creatinine 2.05 H Est GFR (Non-Af Amer) 34 L BUN/Creatinine Ratio 24.4 H Random Glucose 145 H D Calcium Adj for Albumin 8.3 L He has remained fairly sedated throughout the day. He had 1100 mL out of the NG over today's shift. The output is still dark. His abdomen remains nontender scaphoid. No flatus or bowel movement. Lengthy discussion with his about treatment options. Ideally nonoperative management would be preferable, however for prolonged NG suction he will require hyperalimentation. I explained that any operative management would need to be done at a tertiary care center. We discussed options. She is leaning toward [facility] rather than [facility] or the [facility]. A Gastrografin challenge was started at 1545. Will increase base IV rate Discussed care with Dr. Berg, who is covering for Dr. Cardona
--- NOTE | 2020-06-22 19:51 | PN ---
Subjective - Date and Time Seen Date: 06/22/20 Time: 09:00 Subjective Narrative: Josesito reports feeling a little better. Still having abdominal pain and he feels restless and wants to get up. Objective - Vitals Vitals: Last Vital Signs Temp 36.3 C 06/22/20 16:56 Pulse 124 H 06/22/20 19:14 Resp 20 06/22/20 16:56 BP 142/79 06/22/20 19:14 Pulse Ox 95 06/22/20 16:56 - Abnormal Lab Findings Abnormal Lab Findings: Abnormal Lab Results 06/22/20 06/22/20 Range/Units 08:53 08:53 WBC 19.4 H (4.0-10.5) K/mm3 RBC 4.14 L (4.7-6.0) M/mm3 Hgb 12.5 L (13.5-18.0) gm/dL Hct 37.7 L (42.0-52.0) % Neutrophils % (Manual) 92 H (42-75) % Lymphocytes % (Manual) 3 L (20-51) % Neutrophils # (Manual) 17.8 H (1.3-6.0) K/mm3 Lymphocytes # (Manual) 0.6 L (1.5-3.5) k/mm3 BUN 50 H (6-23) mg/dL Creatinine 2.05 H (0.4-1.4) mg/dL Est GFR (Non-Af Amer) 34 L (60-130) mL/min BUN/Creatinine Ratio 24.4 H (9.0-21.6) Random Glucose 145 H D (70-110) mg/dL Calcium Adj for Albumin 8.3 L (8.4-10.2) mg/dL - Exam Constitutional: Present: Alert, Oriented x3, Cooperative ENT Exam: Present: hearing grossly normal Respiratory: Present: lungs clear, normal breath sounds Cardiovascular/Chest: Present: no murmur, tachycardia Abdomen: Present: soft, no masses, hypoactive Skin Exam: Present: normal color, warm/dry, no cyanosis Eye contact: Present: good eye contact, normal speech Thoughts: Present: normal thought pattern, no apparent hallucination Assessment/Plan Plan Narrative: General surgery is managing small bowel resection, see surgery notes for further details. Medically stable. Has NG tube in. Gastrovue challenge planned for today. Remain NPO. - Problems/Diagnosis (1) SBO (small bowel obstruction) Problem: Acute (2) History of colon resection Problem: Chronic (3) Hypertension Problem: Chronic Qualifiers: Hypertension type: essential hypertension (4) CAD (coronary artery disease) Problem: Chronic Qualifiers: Coronary Disease-Associated Artery/Lesion type: due to calcified coronary lesion Qualified Code(s): I25.10 - Atherosclerotic heart disease of [place] coronary artery without angina pectoris; I25.84 - Coronary atherosclerosis due to calcified coronary lesion
[2020-06-22] MEDS: NICOTINE 21 MG PATC TD SCH (22:54)
[2020-06-23] MEDS: NORMAL SALINE 1,000 ML IV PRN ×3 (07:00→21:26)
[2020-06-23] MEDS: LORazepam 2 MG/ML DISP.SYRIN IV PRN ×4 (07:42→22:05)
[2020-06-23] MEDS ORDERED: DIATRIZOATE MEGLUMINE, SODIUM 30 ML BTL PO ONE ×2 (08:11→10:00)
[2020-06-23 12:32] LABS: Hematocrit 30.2 % (42.0-52.0); Hemoglobin 9.9 gm/dL (13.5-18.0); Mean Cell Volume 92.6 fl (78-100); Mean Corpuscular Hemoglobin 30.4 pg (27-31); Mean Corpuscular Hgb Conc 32.8 g/dl (32-36); Mean Platelet Volume 9.5 fl (8-11.3); Neutrophil # 8.1 K/mm3 (1.3-6.0); Neutrophil % 80.2 % (42-75.0); Platelet Count 168 K/mm3 (150-450); Red Blood Count 3.26 M/mm3 (4.7-6.0); Red Cell Distribution Width 12.6 % (11.5-14.0); White Blood Count 10.1 K/mm3 (4.0-10.5)
[2020-06-23 12:35] LABS: BUN/Creatinine Ratio 29.3 (9.0-21.6); Bilirubin, Total 0.4 mg/dL (0.0-1.1); Ca. Corrected For Albumin 8.7 mg/dL (8.4-10.2); Calcium * 8.2 mg/dL (7.9-10.9); Carbon Dioxide 34.5 mmol/L (24-32.6); Potassium 3.5 mmol/L (3.4-4.6)
--- NOTE | 2020-06-23 14:41 | PN ---
Subjective - Date and Time Seen Date: 06/23/20 Time: 14:33 Subjective Narrative: He was admitted 06/21/20 with a small bowel obstruction and a nasogastric tube was placed for a trial of non-operative management given his high risk for surgery. He had initial high volume NG output, which decreased somewhat yesterday. A gastrograffin challange was done yesterday with some passage of flattus. An additional gastrografin bolus was given today. He became agitated and pulled out his NG tube. He initially refused replacement, however eventually a new tube was placed. KUB still shows dilated small bowel. WBC has returned to normal, Hgb has decreased compatible with the coffee graound NG output. Electrolytes remain normal, although GFR has decreased. Objective Objective Narrative: This morning he was agitated and had many questions. After lorazepam he is now somnolent. He denied any abdominal pain, but complained bitterly of the NG tube. - Review of Systems Generalized/Overall Review: Reports: Fatigue. Denies: Chills, Fever EENTM: Reports: Other - Discomfort from the NG tube Respiratory: Reports: Other - No rhonchi. Denies: Cough Cardiac: Denies: Chest Pain, Palpitations Abdominal: Reports: Other - He has passed flatus several times last night and today. Denies: Nausea, Vomiting Genitourinary Symptoms: Reports: No Symptoms Reported Musculoskeletal Complaints: Reports: No Symptoms Reported Neurological: Reports: Anxiety Skin: Reports: No Symptoms Reported - Vitals Vitals: Last Vital Signs Temp 36.4 C 06/23/20 10:22 Pulse 95 06/23/20 10:22 Resp 16 06/23/20 10:22 BP 129/59 06/23/20 10:22 Pulse Ox 94 06/23/20 10:22 - Abnormal Lab Findings Abnormal Lab Findings: Abnormal Lab Results 06/23/20 06/23/20 Range/Units 12:18 12:18 RBC 3.26 L (4.7-6.0) M/mm3 Hgb 9.9 L (13.5-18.0) gm/dL Hct 30.2 L (42.0-52.0) % Immature Gran % (Auto) 0.50 H (0.001-0.429) % Immature Gran # (Auto) 0.05 H (0.000-0.0310) K/mm3 Neutrophils % 80.2 H (42-75.0) % Lymphocytes % 6.8 L (20-51) % Monocytes % 12.2 H (0.0-9) % Neutrophils # 8.1 H (1.3-6.0) K/mm3 Lymphocytes # 0.68 L (1.5-3.5) k/mm3 Monocytes # 1.2 H (0.0-1.0) k/mm3 Carbon Dioxide 34.5 H (24-32.6) mmol/L BUN 77 H D (6-23) mg/dL Creatinine 2.63 H D (0.4-1.4) mg/dL Est GFR (Non-Af Amer) 25 L D (60-130) mL/min BUN/Creatinine Ratio 29.3 H (9.0-21.6) Alkaline Phosphatase 41 L (50-170) U/L Total Protein 6.0 L (6.2-8.2) gm/dL Albumin 3.0 L (3.4-5.0) gm/dl - EKG/Xray Findings XRAY: abdomen Interpretation: Reviewed by me - Exam Constitutional: Present: Other - He was agitated earlier, however is now somnolent after lorazepam, Thin and frail ENT Exam: Present: normal ENT inspection, other - NG tube right Neck: Present: full range of motion, normal inspection Respiratory: Present: lungs clear Cardiovascular/Chest: Present: regular rate, rhythm Abdomen: Present: soft, nontender, hypoactive Extremity: Present: normal range of motion, normal inspection, no pedal edema Skin Exam: Present: warm/dry 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 He repeatedly wants to go home. Assessment/Plan Plan Narrative: He will require further nasogastric suction given the appearance of the nasogastric output. I have talked to the family about choosing a tertiary care center for transfer if the obstruction does not resolve. Today they are talking about [place] or [place]. I have explained that protracted nonoperative management will require hyperalimentation - Problems/Diagnosis (1) SBO (small bowel obstruction) Problem: Acute Narrative: Although he did pass some gas last night and earlier today, there is still dilated bowel on the KUB. We will continue nasogastric suction with attention to keeping the NG tube in place. Will increase IV fluids. I again stressed to the family that prolonged nonoperative management will require hyperalimentation and also increases risk for any surgery should he require it. (2) Bipolar disorder Problem: Chronic Qualifiers: Narrative: He appears to have some degree of microvascular dementia on top of his underlying diagnosis. This makes reasoning with him difficult. Have engaged the family extensively. (3) CAD (coronary artery disease) Problem: Chronic Qualifiers: Coronary Disease-Associated Artery/Lesion type: due to calcified coronary lesion Qualified Code(s): I25.10 - Atherosclerotic heart disease of [place] coronary artery without angina pectoris; I25.84 - Coronary atherosclerosis due to calcified coronary lesion Narrative: Currently stable (4) GERD (gastroesophageal reflux disease) Problem: Acute Narrative: Continue Protonix (5) Hypertension Problem: Chronic Qualifiers: Hypertension type: essential hypertension Qualified Code(s): I10 - Essential (primary) hypertension Narrative: Currently controlled (6) Kidney disease, chronic, stage III (moderate, EGFR 30-59 ml/min) Problem: Chronic Narrative: Will increase IV fluids (7) PVD (peripheral vascular disease) Problem: Chronic Narrative: Currently stable
[2020-06-23] MEDS ORDERED: MENTHOL MM PRN (15:07)
[2020-06-23] MEDS ORDERED: PHENOL MM PRN (15:07)
[2020-06-23] MEDS ORDERED: BENZOCAINE/MENTHOL 16 EACH BOX MM PRN ×2 (15:11→20:54)
[2020-06-23] MEDS ORDERED: PHENOL 180 SPRAY BTL MM PRN (15:21)
[2020-06-23] MEDS: NICOTINE 21 MG PATC TD SCH (22:10)
--- NOTE | 2020-06-23 23:47 | PN ---
Subjective - Date and Time Seen Date: 06/23/20 Time: 16:30 Subjective Narrative: He reports no abdominal pain and has been passing gas. No bowel movement. NG tube is in with suction. Objective - Vitals Vitals: Last Vital Signs Temp 36.6 C 06/23/20 21:53 Pulse 78 06/23/20 21:53 Resp 16 06/23/20 18:33 BP 117/59 06/23/20 21:53 Pulse Ox 93 06/23/20 21:53 - Abnormal Lab Findings Abnormal Lab Findings: Abnormal Lab Results 06/23/20 06/23/20 Range/Units 12:18 12:18 RBC 3.26 L (4.7-6.0) M/mm3 Hgb 9.9 L (13.5-18.0) gm/dL Hct 30.2 L (42.0-52.0) % Immature Gran % (Auto) 0.50 H (0.001-0.429) % Immature Gran # (Auto) 0.05 H (0.000-0.0310) K/mm3 Neutrophils % 80.2 H (42-75.0) % Lymphocytes % 6.8 L (20-51) % Monocytes % 12.2 H (0.0-9) % Neutrophils # 8.1 H (1.3-6.0) K/mm3 Lymphocytes # 0.68 L (1.5-3.5) k/mm3 Monocytes # 1.2 H (0.0-1.0) k/mm3 Carbon Dioxide 34.5 H (24-32.6) mmol/L BUN 77 H D (6-23) mg/dL Creatinine 2.63 H D (0.4-1.4) mg/dL Est GFR (Non-Af Amer) 25 L D (60-130) mL/min BUN/Creatinine Ratio 29.3 H (9.0-21.6) Alkaline Phosphatase 41 L (50-170) U/L Total Protein 6.0 L (6.2-8.2) gm/dL Albumin 3.0 L (3.4-5.0) gm/dl - Exam Constitutional: Present: Alert, Oriented x3, Cooperative ENT Exam: Present: hearing grossly normal Respiratory: Present: lungs clear, normal breath sounds Cardiovascular/Chest: Present: regular rate, rhythm, no edema Abdomen: Present: soft, nondistended, hypoactive Assessment/Plan Plan Narrative: Appears to be improving. +flatus, -BM. Abdominal pain is improved. Continue NG to suction. Awaiting BM. - Problems/Diagnosis (1) SBO (small bowel obstruction) Problem: Acute (2) History of colon resection Problem: Chronic (3) Hypertension Problem: Chronic Qualifiers: Hypertension type: essential hypertension Qualified Code(s): I10 - Essential (primary) hypertension (4) CAD (coronary artery disease) Problem: Chronic Qualifiers: Coronary Disease-Associated Artery/Lesion type: due to calcified coronary lesion Qualified Code(s): I25.10 - Atherosclerotic heart disease of [place] coronary artery without angina pectoris; I25.84 - Coronary atherosclerosis due to calcified coronary lesion
[2020-06-24] MEDS: LORazepam 2 MG/ML DISP.SYRIN IV PRN (02:49)
[2020-06-24] MEDS: NORMAL SALINE 1,000 ML IV PRN (04:07)
[2020-06-24 04:33] VITALS: BP 97/46
--- NOTE | 2020-06-24 11:03 | DS ---
(1) SBO (small bowel obstruction) Problem: Resolved (2) History of colon resection Problem: Chronic (3) Hypertension Problem: Chronic Qualifiers: Hypertension type: essential hypertension Qualified Code(s): I10 - Essential (primary) hypertension (4) CAD (coronary artery disease) Problem: Chronic Qualifiers: Coronary Disease-Associated Artery/Lesion type: due to calcified coronary lesion Qualified Code(s): I25.10 - Atherosclerotic heart disease of [place] coronary artery without angina pectoris; I25.84 - Coronary atherosclerosis due to calcified coronary lesion Date of Discharge:: 06/24/20 Hospital Course: Josesito is a 75 yo male admitted for small bowel obstruction. General surgery was consulted and was primary on the management of the small bowel obstruction. See surgery notes for further detail. He had an NG tube inserted and placed on suction, he was made NPO, and he was given IV fluids for maintenance hydration. He had significant anxiety and removed his NG and IV on 3 occasions. After convincing he did allow these to be replaced twice, until he ultimately they were ultimately removed on the morning of 06/24/20 after he had a bowel movement. During the hospital course he gradually improved due to the NG tube and gastrovue challenges. He gradually began having flatus and then a bowel movement. After having a bowel movement he removed his NG tube and signed out against medical advice and left the hospital. Procedures Performed: see notes below - NG tube inserted 3 times Results and Findings: Lab Pending Results 06/21/20 12:10: WBC 21.4 H, RBC 4.85, Hgb 14.6, Hct 44.2, MCV 91.1, MCH 30.1, MCHC 33.0, RDW 12.5, Plt Count 301, MPV 8.9, Neutrophils % (Manual) 86 H, Band Neuts % (Manual) 2, Lymphocytes % (Manual) 8 L, Monocytes % (Manual) 4, Neutrophils # (Manual) 18.4 H, Lymphocytes # (Manual) 1.7, Monocytes # (Manual) 0.9, Platelet Estimate Normal, RBC Morphology Normal 06/21/20 12:10: Sodium 136, Plasma Sodium 138, Potassium 4.2, Chloride 95 L, Carbon Dioxide 30.6, Anion Gap 14.6 H, BUN 40 H D, Creatinine 2.05 H D, Est GFR (Non-Af Amer) 34 L D, BUN/Creatinine Ratio 19.5, Random Glucose 232 H, Calcium 10.0, Calcium Adj for Albumin 9.2, Total Bilirubin 0.5, AST 19, ALT 33, Alkaline Phosphatase 82, Troponin I Less than 0.017, Total Protein 8.2, Albumin 4.6, Amylase 47, Lipase 146 06/21/20 12:10: Lactic Acid, Venous 3.9 H* 06/21/20 14:30: SARS-CoV-2 (PCR) Not detected 06/21/20 14:44: Lactic Acid, Venous 2.9 H* 06/21/20 17:41: Urine Color Yellow, Urine Appearance Clear, Urine pH 6.0, Ur Specific [place] 1.010, Urine Protein Negative, Urine Glucose (UA) Negative, Urine Ketones Negative, Urine Blood Negative, Urine Nitrate Negative, Urine Bilirubin Negative, Urine Urobilinogen Normal, Ur Leukocyte Esterase Negative, Urine RBC None seen, Urine WBC 0-5, Ur Epithelial Cells 0-5, Urine Bacteria None seen, Urine Culture Comments No culture indicated 06/22/20 08:53: WBC 19.4 H, RBC 4.14 L, Hgb 12.5 L, Hct 37.7 L, MCV 91.1, MCH 30.2, MCHC 33.2, RDW 12.5, Plt Count 217, MPV 8.9, Neutrophils % (Manual) 92 H, Band Neuts % (Manual) 1, Lymphocytes % (Manual) 3 L, Monocytes % (Manual) 4, Neutrophils # (Manual) 17.8 H, Lymphocytes # (Manual) 0.6 L, Monocytes # (Manual) 0.8, Platelet Estimate Normal, RBC Morphology Normal 06/22/20 08:53: Lactic Acid, Venous 0.9 06/22/20 08:53: Sodium 135, Plasma Sodium 136, Potassium 4.5, Chloride 99, Carbon Dioxide 31.2, Anion Gap 9.3, BUN 50 H, Creatinine 2.05 H, Est GFR (Non-Af Amer) 34 L, BUN/Creatinine Ratio 24.4 H, Random Glucose 145 H D, Calcium 8.3, Calcium Adj for Albumin 8.3 L, Total Bilirubin 0.5, AST 19, ALT 24, Alkaline Phosphatase 59, Total Protein 6.6, Albumin 3.6 06/23/20 12:18: WBC 10.1 D, RBC 3.26 L, Hgb 9.9 L, Hct 30.2 L, MCV 92.6, MCH 30.4, MCHC 32.8, RDW 12.6, Plt Count 168, MPV 9.5, Immature Gran % (Auto) 0.50 H, Immature Gran # (Auto) 0.05 H, Neutrophils % 80.2 H, Lymphocytes % 6.8 L, Monocytes % 12.2 H, Eosinophils % 0.1, Basophils % 0.2, Nucleated RBC % 0.0, Neutrophils # 8.1 H, Lymphocytes # 0.68 L, Monocytes # 1.2 H, Eosinophils # 0.0, Absolute Basophils 0.0 06/23/20 12:18: Sodium 139, Plasma Sodium 139, Potassium 3.5 D, Chloride 99, Carbon Dioxide 34.5 H, Anion Gap 9.0, BUN 77 H D, Creatinine 2.63 H D, Est GFR (Non-Af Amer) 25 L D, BUN/Creatinine Ratio 29.3 H, Random Glucose 107, Calcium 8.2, Calcium Adj for Albumin 8.7, Total Bilirubin 0.4, AST 22, ALT 21, Alkaline Phosphatase 41 L, Total Protein 6.0 L, Albumin 3.0 L Discharge Location: Home Disposition: Against medical advice Condition: Stable Discharge Activity: Activity as tolerated Discharge Diet: Resume usual diet Problem Oriented Discharge Instructions to Patient/Family: Bowel Obstruction, [id number] Complete Home Medications List: Complete Home Medication List: fluticasone propionate 50 mcg/actuation nasal spray,suspension 1 spray SELIN BID #9.9 g 07/12/18 cholecalciferol (vitamin D3) 50 mcg (2,000 unit) capsule 2,000 unit PO DAILY 01/25/19 metoprolol tartrate 50 mg tablet 50 mg PO BID #60 tab 12/17/19 [place] Oil/[place]-3 Fatty Acids [Fish Oil] 1,200 mg PO DAILY 01/10/20 lamotrigine 200 mg tablet 200 mg PO DAILY #30 tab 04/02/20 dextroamphetamine-amphetamine 20 mg tablet 40 mg PO BID #120 tab 04/23/20 Aspirin [Aspirin EC] 81 mg PO DAILY 06/21/20 Forms: Patient Portal Registration
== END 2020-06-24 07:10 | disposition left against medical advice (07) | DRG 390 ==
LOC: ER 11:00 → MS 15:55
PROVIDERS: ADMIT Family Medicine; ATTEND Family Medicine